=== PATIENT | female | born 1985 | race African-American/Black ===

== ENCOUNTER 2018-12-26 08:14 | Emergency (ER) | payer MEDICAID ==
[~2018-12-26] VITALS: Ht 160 cm; Wt 90.7 kg
[2018-12-26 09:03] LABS: Urine Bacteria FEW /hpf (None Seen); Urine Blood Negative /uL (Negative); Urine Specific Gravity 1.014 (1.001-1.035); Urine WBC 34 /hpf (0 - 5)
[2018-12-26] MEDS ORDERED: KETOROLAC TROMETH 60MG/2ML VIAL IM ONE (09:15)
[2018-12-26 09:18] VITALS: BP 134/74
== END 2018-12-26 10:33 | disposition home or self-care (01) ==
LOC: ER 08:15
DX: G89.29 Other chronic pain (principal); M54.5 Low back pain; M25.562 Pain in left knee; N39.0 Urinary tract infection, site not specified; Z90.49 Acquired absence of other specified parts of digestive tract
CPT/HCPCS: 72100; 73562; 81001; 81025; 96372; 99284; J1885